=== PATIENT | male | born 1940 | race Caucasian/White ===

== ENCOUNTER 2016-11-20 14:27 | Inpatient (IN) | payer MEDICARE, OTHER ==
[~2016-11-20] VITALS: Ht 180.3 cm; Wt 75.1 kg
[~2016-11-20 14:27] MED LIST: PERC5TAB12 PO
[2016-11-20 14:38] VITALS: BP 175/74; PULSE 105; RESP 16; TEMP 99.1; O2SAT 100
[2016-11-20] MEDS ORDERED: SODIUM CHLOR 0.9% 1000 ML INJ 1,000 ML IV SCH (14:52)
[2016-11-20] MEDS ORDERED: SODIUM CHLORIDE 0.9% FLUSH 5 ML FLUSH IV FLUSH PRN (15:00)
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
--- NOTE | 2016-11-20 15:48 | RADRPT ---
EXAM DATE/TIME: 11/20/2016 15:24 [facility] COMPARISON: No previous studies available for comparison. INDICATIONS : Altered mental status RADIATION DOSE: 49.19 CTDIvol (mGy) MEDICAL HISTORY : Cardiovascular disease. Hypertension. Diabetes mellitus type 2.Skin cancer. SURGICAL HISTORY : None. ENCOUNTER: Initial ACUITY: 1 day PAIN SCALE: 0/10 LOCATION: cranial TECHNIQUE: Multiple contiguous axial images were obtained of the head. Using automated exposure control and adj ustment of the mA and/or kV according to patient size, radiation dose was kept as low as reasonably a chievable to obtain optimal diagnostic quality images. DICOM format image data is available electro nically for review and comparison. FINDINGS: CEREBRUM: Moderate cerebral atrophy with mild periventricular ischemic white matter demyelination. The ventricl es are normal for age. No evidence of midline shift, mass lesion, hemorrhage or acute infarction. N o extra-axial fluid collections are seen. POSTERIOR FOSSA: The cerebellum and brainstem are intact. The 4th ventricle is midline. The cerebellopontine angle i s unremarkable. EXTRACRANIAL: The visualized portion of the orbits is intact. SKULL: The calvaria is intact. No evidence of skull fracture. CONCLUSION: 1. No acute intracranial abnormality. Andrew Holder MD on November 20, 2016 at 15:39 Board Certified Radiologist. This report was verified electronically.
[2016-11-20 15:54] LABS: AUTOMATED NEUTROPHIL # 10.3 TH/MM3 (1.8-7.7); BASOPHIL % 0.1 % (0.0-2.0); HEMATOCRIT 39.5 % (39.0-51.0); HEMO FLAGS DIFF FINAL; LYMPHOCYTE # 0.6 TH/MM3 (1.0-4.8); MEAN CELL VOLUME 90.7 FL (80.0-100.0); MEAN CORPUSCULAR HEMOGLOBIN 30.1 PG (27.0-34.0); MEAN CORPUSCULAR HGB CONC 33.1 % (32.0-36.0); MONO % 11.5 % (0.0-8.0); NEUT % 83.4 % (16.0-70.0); PLATELET COUNT 245 TH/MM3 (150-450); RED BLOOD COUNT 4.35 MIL/MM3 (4.50-5.90); WHITE BLOOD COUNT 12.4 TH/MM3 (4.0-11.0)
--- NOTE | 2016-11-20 16:01 | RADRPT ---
EXAM DATE/TIME: 11/20/2016 15:43 [facility] COMPARISON: CHEST SINGLE AP, February 06, 2016, 0:13. INDICATIONS : Syncope. MEDICAL HISTORY : Cerebrovascular disease. Hypertension Diabetes mellitus type II. SURGICAL HISTORY : None. ENCOUNTER: Initial ACUITY: 1 day PAIN SCORE: 0/10 LOCATION: Bilateral chest FINDINGS: The lungs are clear. The small appearing bone island in the left rib. The heart is minimally large. There is no congestive failure.. CONCLUSION: No acute disease. Rajeev Tavarez MD FACR on November 20, 2016 at 15:58 Board Certified Radiologist. This report was verified electronically.
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
[2016-11-20 16:17] VITALS: BP 160/66; PULSE 99; RESP 18; O2SAT 100
[2016-11-20 16:17] LABS: ALT (GPT) 23 U/L (12-78); ANION GAP 9 MEQ/L (5-15); BICARBONATE 27.7 MEQ/L (21.0-32.0); BLOOD UREA NITROGEN 42 MG/DL (7-18); CHLORIDE 101 MEQ/L (98-107); POTASSIUM 4.4 MEQ/L (3.5-5.1); SODIUM (NA) 138 MEQ/L (136-145)
[2016-11-20 16:23] LABS: BLOOD, URINE TRACE (NEG); GLUCOSE,URINE 1000 mg/dL (NEG); HYALINE CAST, URINE 5 /lpf (RARE); KETONE, URINE 10 mg/dL (NEG); MUCUS URINE FEW /lpf (OCC); NITRITE,URINE NEG (NEG); PH, URINE 5.5 (5.0-8.5); URINE COLOR YELLOW (YELLW/STRAW)
[2016-11-20 16:24] LABS: COMMENT (UR) CATH-CULT NOT IND; CULTURE IF INDICATED CATH CULTURE NOT IND
[2016-11-20 16:25] LABS: ALKALINE PHOSPHATASE 80 U/L (45-117); AST (GOT) 24 U/L (15-37); CREATINE KINASE 215 U/L (39-308); GLOMERULAR FILTRATION RATE 48 ML/MIN (>89); TOTAL BILIRUBIN ADULT 0.5 MG/DL (0.2-1.0)
[2016-11-20] MEDS ORDERED: INSULIN HUMAN REGULAR 1,000 UNITS/10 ML VIAL IV PUSH ONE (17:30)
[2016-11-20] MEDS ORDERED: cefTRIAXone INJ 1,000 MG in SODIUM CHLORIDE 0.9% INJ 100 ML IV ONE (17:30)
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
[2016-11-20] MEDS ORDERED: BISACODYL 10 MG SUPP RECTAL PRN (18:00)
[2016-11-20] MEDS ORDERED: NALOXONE HCL 0.4 MG/ML AMP IV PRN (18:00)
[2016-11-20] MEDS ORDERED: LACTULOSE SYRUP 20 GM/30 ML CUP PO PRN (18:00)
[2016-11-20] MEDS ORDERED: DEXTROSE 50% IN WATER 50 ML VIAL(D50) IV PRN (18:00)
[2016-11-20] MEDS ORDERED: ONDANSETRON HCL 4 MG/2 ML VIAL IVP PRN (18:00)
[2016-11-20] MEDS ORDERED: Vancomycin Consult Pharmacy 1 EA OTHER SCH (18:00)
[2016-11-20] MEDS ORDERED: SODIUM CHLORIDE 0.9% FLUSH 10 ML FLUSH IV FLUSH PRN (18:00)
[2016-11-20] MEDS ORDERED: SENNOSIDES 8.6 MG TAB PO PRN (18:00)
[2016-11-20] MEDS ORDERED: VANCOMYCIN INJ 1,000 MG in SODIUM CHLOR 0.9% 250 ML INJ 250 ML IV SCH (18:00)
[2016-11-20] MEDS ORDERED: MAGNESIUM HYDROXIDE SUSP 30 ML CUP PO PRN (18:00)
[2016-11-20] MEDS ORDERED: GLUCAGON 1 MG/ML VIAL OTHER PRN (18:00)
[2016-11-20 18:04] LABS: AMPHETAMINE, URINE NEG (NEG); BARBITURATES, URINE NEG (NEG); COCAINE, URINE NEG (NEG)
[2016-11-20] MEDS: VANCOMYCIN INJ 1,250 MG in SODIUM CHLOR 0.9% 250 ML INJ 250 ML IV SCH (20:22)
[2016-11-20] MEDS: SODIUM CHLOR 0.9% 1000 ML INJ 1,000 ML IV SCH (20:23)
[2016-11-20 20:24] VITALS: BP 155/69; PULSE 97; RESP 16; TEMP 98.9; O2SAT 100
[2016-11-20] MEDS: DOCUSATE SODIUM 50 MG/SENNA 8.6 MG TAB PO SCH (20:26)
[2016-11-20] MEDS: SODIUM CHLORIDE 0.9% FLUSH 10 ML FLUSH IV FLUSH SCH (20:27)
[2016-11-20] MEDS: HEPARIN SODIUM - SQ 10,000 UNITS/ML VIAL SQ SCH (20:27)
[2016-11-20] MEDS: INSULIN ASPART SUPPLEMENTAL SCALE SQ SCH (20:36)
[2016-11-21] VITALS (9 sets, daily range): BP systolic 125–160; BP diastolic 55–69; PULSE 82–107; RESP 16–20; TEMP 96.7–101.8; O2SAT 91–98
[2016-11-21] MEDS: ACETAMINOPHEN 325 MG TAB PO PRN (00:53)
[2016-11-21] MEDS: SODIUM CHLOR 0.9% 1000 ML INJ 1,000 ML IV SCH ×2 (06:00→17:10)
[2016-11-21] MEDS: INSULIN ASPART SUPPLEMENTAL SCALE SQ SCH ×4 (06:39→21:00)
--- NOTE | 2016-11-21 08:04 | EKG ---
Date Performed: 11/20/2016 Time Performed: 15:00:28 PTAGE: 76 years EKG: SINUS TACHYCARDIA ABNORMAL RHYTHM ECG PREVIOUS TRACING : 02/06/2016 08.17 DOCTOR: Christopher Luz Interpretating Date/Time 11/21/2016 07:58:27
[2016-11-21 08:07] LABS: HEMATOCRIT 36.7 % (39.0-51.0); MEAN CELL VOLUME 90.3 FL (80.0-100.0); MEAN CORPUSCULAR HEMOGLOBIN 29.3 PG (27.0-34.0); MEAN CORPUSCULAR HGB CONC 32.5 % (32.0-36.0); PLATELET COUNT 224 TH/MM3 (150-450); RED BLOOD COUNT 4.06 MIL/MM3 (4.50-5.90); RED CELL DISTRIBUTION WIDTH 13.5 % (11.6-17.2); REVIEW FLAG FINAL; WHITE BLOOD COUNT 11.5 TH/MM3 (4.0-11.0)
[2016-11-21 08:40] LABS: BICARBONATE 26.1 MEQ/L (21.0-32.0); POTASSIUM 3.8 MEQ/L (3.5-5.1)
[2016-11-21] MEDS: DOCUSATE SODIUM 50 MG/SENNA 8.6 MG TAB PO SCH ×2 (09:13→21:03)
[2016-11-21] MEDS: SODIUM CHLORIDE 0.9% FLUSH 10 ML FLUSH IV FLUSH SCH ×2 (09:14→21:00)
[2016-11-21] MEDS: HEPARIN SODIUM - SQ 10,000 UNITS/ML VIAL SQ SCH ×2 (09:14→21:03)
--- NOTE | 2016-11-21 11:16 | PQ ---
Physician Query Response Document PATIENT: AUNDREA VELASQUEZ : 1940 ADMIT DATE: 11/20/2016 5:20 PM DISCH DATE: RESPONDING PROVIDER #: [email or web address] QUERY TEXT: Sepsis Query Based on your medical judgement, can you further clarify the folowiin. Sepsis (SIRS due to an infection) 2. Sepsis with Organ Dysfunction 3. A localized Infection only 4. Another condition - please specify 5. Unable to determine - please explain. Depending on your selection above, please indicate one of the below if applicable: - Sepsis was present on Admission - Sepsis developed after admission The patient's Clinical Indicators include: History and physical 11/20/16 : Cellulitis of left knee : WBC (12.4) is elevated and there are signs o f cellulitis. Lactic acid 1.2, Heart rate 105, Temp 99.1. Query created by: Ivy Ridley on 11/21/2016 9:44 AM RESPONSE TEXT: Provider disagreed with this CDI query. I have never seen this patient. Electronically signed by: Frank Belcher MD 11/21/2016 11:13 AM
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
[2016-11-21] MEDS: VANCOMYCIN INJ 1,250 MG in SODIUM CHLOR 0.9% 250 ML INJ 250 ML IV SCH (21:02)
[2016-11-22] MEDS: SODIUM CHLOR 0.9% 1000 ML INJ 1,000 ML IV SCH ×2 (02:00→11:31)
[2016-11-22 03:58] VITALS: BP 142/65; PULSE 86; RESP 16; TEMP 97.8; O2SAT 98
[2016-11-22] MEDS: INSULIN ASPART SUPPLEMENTAL SCALE SQ SCH ×4 (06:16→21:07)
[2016-11-22 07:00] VITALS: PULSE 97
[2016-11-22 08:32] VITALS: BP 136/58; PULSE 90; RESP 18; TEMP 98.6; O2SAT 96
[2016-11-22] MEDS: DOCUSATE SODIUM 50 MG/SENNA 8.6 MG TAB PO SCH ×2 (08:53→21:06)
[2016-11-22] MEDS: SODIUM CHLORIDE 0.9% FLUSH 10 ML FLUSH IV FLUSH SCH ×2 (08:53→21:06)
[2016-11-22] MEDS: HEPARIN SODIUM - SQ 10,000 UNITS/ML VIAL SQ SCH ×2 (08:53→21:00)
[2016-11-22 09:23] LABS: HEMATOCRIT 37.9 % (39.0-51.0); MEAN CELL VOLUME 91.8 FL (80.0-100.0); MEAN CORPUSCULAR HEMOGLOBIN 29.7 PG (27.0-34.0); MEAN CORPUSCULAR HGB CONC 32.3 % (32.0-36.0); PLATELET COUNT 224 TH/MM3 (150-450); RED BLOOD COUNT 4.13 MIL/MM3 (4.50-5.90); RED CELL DISTRIBUTION WIDTH 13.7 % (11.6-17.2); REVIEW FLAG FINAL; WHITE BLOOD COUNT 9.6 TH/MM3 (4.0-11.0)
[2016-11-22 10:20] LABS: BICARBONATE 26.5 MEQ/L (21.0-32.0); POTASSIUM 3.4 MEQ/L (3.5-5.1)
[2016-11-22 12:41] VITALS: BP 144/59; PULSE 87; RESP 18; TEMP 99.4; O2SAT 97
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
[2016-11-22 16:10] VITALS: BP 106/62; PULSE 86; RESP 18; TEMP 100.1; O2SAT 97
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
[2016-11-22] MEDS: VANCOMYCIN INJ 1,250 MG in SODIUM CHLOR 0.9% 250 ML INJ 250 ML IV SCH (21:00)
[2016-11-23] VITALS (8 sets, daily range): BP systolic 97–171; BP diastolic 51–80; PULSE 77–105; RESP 18–20; TEMP 96.9–101.4; O2SAT 91–99
[2016-11-23] MEDS ORDERED: HALOPERIDOL LACTATE 5 MG/ML AMP IM ONE (01:30)
[2016-11-23] MEDS: INSULIN ASPART SUPPLEMENTAL SCALE SQ SCH ×4 (06:53→20:57)
[2016-11-23 07:40] LABS: HEMATOCRIT 40.3 % (39.0-51.0); MEAN CELL VOLUME 91.4 FL (80.0-100.0); MEAN CORPUSCULAR HEMOGLOBIN 29.4 PG (27.0-34.0); MEAN CORPUSCULAR HGB CONC 32.2 % (32.0-36.0); PLATELET COUNT 233 TH/MM3 (150-450); RED BLOOD COUNT 4.41 MIL/MM3 (4.50-5.90); RED CELL DISTRIBUTION WIDTH 13.5 % (11.6-17.2); REVIEW FLAG FINAL; WHITE BLOOD COUNT 10.5 TH/MM3 (4.0-11.0)
[2016-11-23 07:54] LABS: BICARBONATE 28.3 MEQ/L (21.0-32.0); POTASSIUM 3.9 MEQ/L (3.5-5.1)
[2016-11-23] MEDS: HEPARIN SODIUM - SQ 10,000 UNITS/ML VIAL SQ SCH ×2 (09:40→20:00)
[2016-11-23] MEDS: ACETAMINOPHEN 325 MG TAB PO PRN ×2 (09:40→21:03)
[2016-11-23] MEDS: DOCUSATE SODIUM 50 MG/SENNA 8.6 MG TAB PO SCH ×2 (09:40→20:55)
[2016-11-23] MEDS: SODIUM CHLORIDE 0.9% FLUSH 10 ML FLUSH IV FLUSH SCH ×2 (09:56→20:55)
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
[2016-11-23] MEDS ORDERED: ATOR40TA16 PO (16:46)
[2016-11-23] MEDS ORDERED: GLIP10TA6 PO (16:48)
[2016-11-23] MEDS ORDERED: METF500T PO (16:49)
[2016-11-23] MEDS ORDERED: LISI-515 PO (16:50)
[2016-11-23] MEDS ORDERED: LANTUS2P SQ (16:53)
[2016-11-23] MEDS ORDERED: ASPI81CH CHEW (16:54)
[2016-11-23 17:10] LABS: WBC, SYNOVIAL FLUID 19375 /MM3 (0-200)
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
[2016-11-23] MEDS ORDERED: PHARMACY ORDERED LAB ONE (19:45)
[2016-11-23] MEDS: VANCOMYCIN INJ 1,250 MG in SODIUM CHLOR 0.9% 250 ML INJ 250 ML IV SCH (20:55)
[2016-11-24] VITALS (9 sets, daily range): BP systolic 130–176; BP diastolic 67–94; PULSE 100–108; RESP 16–20; TEMP 97–100.1; O2SAT 95–97
[2016-11-24] MEDS: INSULIN ASPART SUPPLEMENTAL SCALE SQ SCH ×4 (06:24→21:57)
[2016-11-24] MEDS: SODIUM CHLORIDE 0.9% FLUSH 10 ML FLUSH IV FLUSH SCH ×2 (08:30→21:46)
[2016-11-24] MEDS: HEPARIN SODIUM - SQ 10,000 UNITS/ML VIAL SQ SCH ×2 (08:30→21:47)
[2016-11-24] MEDS: DOCUSATE SODIUM 50 MG/SENNA 8.6 MG TAB PO SCH ×2 (08:30→21:00)
--- NOTE | 2016-11-24 09:27 | PD.ORT.PN ---
Subjective Subjective Remarks Patient comfortable. Pain controlled. Able to elevate his leg with minimal pain. Objective Vitals Vital Signs Date Time Temp Pulse Resp B/P Pulse Ox O2 Delivery O2 Flow Rate FiO2 11/24/16 08:09 99.3 102 16 138/69 95 11/24/16 04:00 100.1 107 18 139/67 96 11/24/16 01:38 102 11/24/16 00:00 97.9 100 20 137/88 97 11/23/16 20:00 101.4 105 18 157/70 95 11/23/16 16:24 96.9 99 20 150/63 96 11/23/16 12:50 99.1 95 20 137/57 94 11/23/16 10:54 77 I/O 11/23/16 11/23/16 11/23/16 11/24/16 11/24/16 11/24/16 07:00 15:00 23:00 07:00 15:00 23:00 Intake Total 236 ml Output Total 2300 ml 1750 ml 150 ml 2400 ml 250 ml Balance -2300 ml -1750 ml 86 ml -2400 ml -250 ml Intake Oral 236 ml Output Urine Total 2300 ml 1750 ml 150 ml 2400 ml 250 ml # Bowel Movements 1 1 Result Diagram: 11/23/16 0656 11/23/16 0656 Objective Remarks Left knee 1+ effusion mild global tenderness Mild lateral leg erythema prior incision from suprapatella tibia IM rodding distal neurologic and vascular exam intact Assessment & Plan Problem List: (1) Left leg cellulitis (2) Knee effusion, left Assessment and Plan Left knee aspirated yesterday. Specimen to be sent for cell count, crystal analysis, culture and gram stain Awaiting culture results. He possible will need formal irrigation and debridement if symptoms worsens Continue IV antibiotic Monitor Marco Canela Nov 24, 2016 09:27
[2016-11-24 13:04] LABS: AUTOMATED NEUTROPHIL # 8.1 TH/MM3 (1.8-7.7); BASOPHIL % 0.2 % (0.0-2.0); EOSINOPHIL # 0.1 TH/MM3 (0-0.4); EOSINOPHIL % 0.5 % (0.0-4.0); HEMATOCRIT 40.2 % (39.0-51.0); HEMO FLAGS DIFF FINAL; LYMPH % 7.7 % (9.0-44.0); LYMPHOCYTE # 0.8 TH/MM3 (1.0-4.8); MEAN CELL VOLUME 89.9 FL (80.0-100.0); MEAN CORPUSCULAR HGB CONC 33.3 % (32.0-36.0); MONO % 12.3 % (0.0-8.0); NEUT % 79.3 % (16.0-70.0); PLATELET COUNT 250 TH/MM3 (150-450); RED BLOOD COUNT 4.47 MIL/MM3 (4.50-5.90); RED CELL DISTRIBUTION WIDTH 13.8 % (11.6-17.2); WHITE BLOOD COUNT 10.2 TH/MM3 (4.0-11.0)
[2016-11-24 13:26] LABS: BICARBONATE 27.4 MEQ/L (21.0-32.0); POTASSIUM 3.7 MEQ/L (3.5-5.1)
[2016-11-24] MEDS: VANCOMYCIN INJ 800 MG in SODIUM CHLOR 0.9% 250 ML INJ 250 ML IV SCH (13:47)
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
[2016-11-24 18:46] LABS: CREATINE KINASE 62 U/L (39-308)
[2016-11-24] MEDS: ATORVASTATIN 40 MG TAB PO SCH (21:47)
[2016-11-25 00:20] LABS: CREATINE KINASE 56 U/L (39-308)
[2016-11-25] MEDS ORDERED: PHARMACY ORDERED LAB ONE (01:45)
[2016-11-25] MEDS: VANCOMYCIN INJ 800 MG in SODIUM CHLOR 0.9% 250 ML INJ 250 ML IV SCH ×2 (02:29→18:33)
[2016-11-25 04:00] VITALS: BP 124/76; PULSE 90; RESP 20; TEMP 97.8; O2SAT 96
[2016-11-25] MEDS: INSULIN ASPART SUPPLEMENTAL SCALE SQ SCH ×4 (06:05→20:25)
[2016-11-25 09:15] VITALS: BP 136/72; PULSE 97; RESP 17; TEMP 98.3; O2SAT 95
[2016-11-25] MEDS: LISINOPRIL 20 MG TAB PO SCH (11:10)
[2016-11-25] MEDS: DOCUSATE SODIUM 50 MG/SENNA 8.6 MG TAB PO SCH ×2 (11:13→21:52)
[2016-11-25] MEDS: HEPARIN SODIUM - SQ 10,000 UNITS/ML VIAL SQ SCH ×2 (11:15→20:00)
[2016-11-25] MEDS: SODIUM CHLORIDE 0.9% FLUSH 10 ML FLUSH IV FLUSH SCH ×2 (11:15→21:19)
[2016-11-25] MEDS ORDERED: LACTULOSE SYRUP 20 GM/30 ML CUP PO SCH (11:45)
[2016-11-25] MEDS ORDERED: ONDANSETRON HCL 4 MG/2 ML VIAL IV PUSH ONE (12:00)
[2016-11-25] MEDS ORDERED: PROPOFOL 200 MG/20 ML AMP IV ONE (12:00)
[2016-11-25 12:31] VITALS: BP 142/67; PULSE 103; RESP 17; TEMP 97.9; O2SAT 93
--- NOTE | 2016-11-25 14:53 | EKG ---
Date Performed: 11/24/2016 Time Performed: 14:20:53 PTAGE: 76 years EKG: SINUS TACHYCARDIA WITH OCCASIONAL SUPRAVENTRICULAR PREMATURE COMPLEXES Since previous fabian ng, no significant change noted ABNORMAL RHYTHM ECG PREVIOUS TRACING : 11/20/2016 15.00 DOCTOR: Martin Gray Interpretating Date/Time 11/25/2016 14:52:15
[2016-11-25] MEDS ORDERED: GENTAMICIN SULFATE 80 MG/2 ML VIAL ONE (15:02)
[2016-11-25] MEDS ORDERED: INSULIN HUMAN REGULAR 1,000 UNITS/10 ML VIAL ONE (15:45)
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
[2016-11-25] MEDS ORDERED: Vancomycin Consult Pharmacy 1 EA OTHER SCH (17:15)
[2016-11-25 17:50] VITALS: BP 104/68; PULSE 98; RESP 17; TEMP 99; O2SAT 95
[2016-11-25] MEDS ORDERED: fentaNYL CITRATE 250 MCG/5 ML AMP ONE (19:15)
--- NOTE | 2016-11-25 19:59 | PD.OP ---
cc: Jluis Bird Jr., MD Operative Report Date of Surgery: Nov 25, 2016 Preoperative Diagnosis: Left knee septic arthritis Postoperative Diagnosis: Same Procedure: Left knee open irrigation Anesthesia: Gen. Surgeon: Jluis Bird Inspector [employer](s): Staff Resident Surgeon: None Operation and Findings: Patient was seen and evaluated preoperatively. Patient was found to have infection of the LEFT knee joint. Informed consent was obtained after detailed discussion of risk and benefits of surgery. Operative site was marked. A timeout was performed and agreed upon either the surgical team to identify the patient's name, age, operative site, operating surgeon, medical record number and planned procedure. IV sedation and GETA were administered by anesthesiologist. Operative arm was prepped with alcohol followed by Hibiclens and draped in usual sterile fashion. Procedure began with a midline incision extending from the inferior half of the patella to the level of the tibia tubercle. Dissection was taken down to the level of the patellar tendon and a medial parapatellar arthrotomy was performed with a knife. A small amount of purulent material was found. Specimen was obtained for cultures and sensitivities. A small incision was made for a superior medial portal. A blunt trocar was inserted into the joint from and the knee was washed with 3L NS. At this point the joint was cleaned. The capsule and subcutaneous tissues closed with 3-0 PDS and skin was closed with 3-0 nylon. Sterile dressings were applied. Patient was awakened and transferred to recovery in stable condition. Needle and sponge counts were correct. POSTP-OP PLAN OF ACTIVITY Antibiotics: Ancef, vancomycin Antiocoagulation: Lovenox Weight bearing status: wbat PT/OT: ROM as tolerated to irrigated joints Dressing: daily dressing change by RN starting postop day 2 Future procedure planned: no Dispo: ok to dc when cleared by ID and primary team Jluis Bird Jr., MD Nov 25, 2016 19:59
[2016-11-25] MEDS ORDERED: BISACODYL 10 MG SUPP RECTAL PRN (20:00)
[2016-11-25] MEDS ORDERED: SENNOSIDES 8.6 MG TAB PO PRN (20:00)
[2016-11-25] MEDS ORDERED: VANCOMYCIN INJ 1,000 MG in SODIUM CHLOR 0.9% 250 ML INJ 250 ML IV SCH (20:00)
[2016-11-25] MEDS ORDERED: MORPHINE SULFATE 8 MG/ML INJ IV PUSH PRN (20:00)
[2016-11-25] MEDS ORDERED: LACTULOSE SYRUP 20 GM/30 ML CUP PO PRN (20:00)
[2016-11-25] MEDS ORDERED: Post-op Orders (for Pharmacy) MISC XX ONE (20:00)
[2016-11-25] MEDS ORDERED: ZOLPIDEM TARTRATE 5 MG TAB PO PRN (20:00)
[2016-11-25] MEDS ORDERED: MAGNESIUM HYDROXIDE SUSP 30 ML CUP PO PRN (20:00)
[2016-11-25] MEDS ORDERED: PROMETHAZINE HCL 25 MG TAB PO PRN (20:00)
[2016-11-25] MEDS ORDERED: PERC5TAB12 PO (20:03)
[2016-11-25] MEDS ORDERED: DO NOT ADM ANY ANTICOAGULANT DRUGS PRN (20:09)
[2016-11-25] MEDS: KETOROLAC TROMETHAMINE 30 MG/ML (IVP) VIAL IVP SCH (21:15)
[2016-11-25] MEDS: ATORVASTATIN 40 MG TAB PO SCH (21:51)
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
[2016-11-26] VITALS (10 sets, daily range): BP systolic 98–170; BP diastolic 53–70; PULSE 74–100; RESP 17–20; TEMP 96.6–98.5; O2SAT 92–98
[2016-11-26] MEDS ORDERED: PHARMACY ORDERED LAB ONE (01:45)
[2016-11-26] MEDS: VANCOMYCIN INJ 800 MG in SODIUM CHLOR 0.9% 250 ML INJ 250 ML IV SCH ×2 (02:05→13:47)
[2016-11-26] MEDS: KETOROLAC TROMETHAMINE 30 MG/ML (IVP) VIAL IVP SCH ×4 (02:44→22:05)
[2016-11-26] MEDS: oxyCODONE/ACETAMINOPHEN 5 MG/325 MG TAB PO PRN (02:47)
[2016-11-26] MEDS: INSULIN ASPART SUPPLEMENTAL SCALE SQ SCH ×4 (06:08→21:00)
[2016-11-26] MEDS: SODIUM CHLORIDE 0.9% FLUSH 10 ML FLUSH IV FLUSH SCH ×2 (09:00→21:00)
[2016-11-26] MEDS: DOCUSATE SODIUM 50 MG/SENNA 8.6 MG TAB PO SCH ×2 (09:00→21:00)
[2016-11-26] MEDS: LISINOPRIL 20 MG TAB PO SCH (10:43)
[2016-11-26] MEDS: ENOXAPARIN SODIUM 30 MG/0.3 ML SYRINGE SQ SCH ×2 (10:43→22:05)
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
--- NOTE | 2016-11-26 17:03 | PD.ORT.PN ---
Subjective Subjective Remarks Patient comfortable. Pain controlled. NAD. Objective Vitals Vital Signs Date Time Temp Pulse Resp B/P Pulse Ox O2 Delivery O2 Flow Rate FiO2 11/26/16 16:00 97.9 96 18 110/63 98 11/26/16 12:00 98.5 100 17 152/65 95 11/26/16 07:58 96.9 74 19 135/67 96 11/26/16 07:18 93 21 11/26/16 05:32 96.6 85 20 98/53 95 11/26/16 02:51 92 21 11/26/16 01:27 97.1 92 20 151/70 96 11/25/16 21:51 18 11/25/16 20:45 108 20 105/61 93 Nasal Cannula 2 11/25/16 20:30 106 20 110/56 95 Nasal Cannula 2 11/25/16 20:12 98.1 107 20 109/65 97 Nasal Cannula 2 11/25/16 17:50 99.0 98 17 104/68 95 I/O 11/25/16 11/25/16 11/25/16 11/26/16 11/26/16 11/26/16 07:00 15:00 23:00 07:00 15:00 23:00 Intake Total 1080 ml 450 ml 920 ml Output Total 250 ml 10 ml 500 ml Balance -250 ml 1070 ml 450 ml 420 ml Intake Oral 920 ml IV Total 280 ml 450 ml Other 800 ml Output Urine Total 250 ml 500 ml Estimated Blood Loss 10 ml # Voids 8 1 # Bowel Movements 0 Result Diagram: 11/24/16 1240 11/24/16 1240 Objective Remarks Left knee dressing and talha wrap C/D/I calves soft negative Ulisses's able to left leg without pain distally motor, neuro, and sensory intact Assessment & Plan Problem List: (1) Left leg cellulitis (2) Knee effusion, left Assessment and Plan POD #1 Left Knee Open Irrigation POST-OP PLAN OF ACTIVITY Antibiotics: Ancef, vancomycin Antiocoagulation: Lovenox Weight bearing status: WBAT PT/OT: ROM as tolerated to irrigated joints Dressing: daily dressing change by RN starting postop day 2 Future procedure planned: no Dispo: ok to dc when cleared by ID and primary team Marco Canela Nov 26, 2016 17:03
[2016-11-26] MEDS: ATORVASTATIN 40 MG TAB PO SCH (22:05)
[2016-11-27] VITALS (7 sets, daily range): BP systolic 160–178; BP diastolic 68–77; PULSE 87–116; RESP 18–20; TEMP 97.1–99.2; O2SAT 95–98
[2016-11-27] MEDS: VANCOMYCIN INJ 800 MG in SODIUM CHLOR 0.9% 250 ML INJ 250 ML IV SCH ×2 (01:22→16:04)
[2016-11-27] MEDS: KETOROLAC TROMETHAMINE 30 MG/ML (IVP) VIAL IVP SCH ×3 (04:15→16:16)
[2016-11-27] MEDS: INSULIN ASPART SUPPLEMENTAL SCALE SQ SCH ×4 (06:38→21:36)
[2016-11-27] MEDS: SODIUM CHLORIDE 0.9% FLUSH 10 ML FLUSH IV FLUSH SCH ×2 (09:00→21:40)
[2016-11-27] MEDS: DOCUSATE SODIUM 50 MG/SENNA 8.6 MG TAB PO SCH ×2 (09:00→21:39)
[2016-11-27] MEDS: ENOXAPARIN SODIUM 30 MG/0.3 ML SYRINGE SQ SCH ×2 (09:54→21:39)
[2016-11-27] MEDS: LISINOPRIL 20 MG TAB PO SCH (09:55)
[2016-11-27 11:16] LABS: BASOPHIL % 0.1 % (0.0-2.0); EOSINOPHIL # 0.1 TH/MM3 (0-0.4); EOSINOPHIL % 1.2 % (0.0-4.0); HEMATOCRIT 39.7 % (39.0-51.0); HEMO FLAGS DIFF FINAL; LYMPH % 9.8 % (9.0-44.0); LYMPHOCYTE # 0.9 TH/MM3 (1.0-4.8); MEAN CELL VOLUME 90.9 FL (80.0-100.0); MEAN CORPUSCULAR HEMOGLOBIN 29.6 PG (27.0-34.0); MEAN CORPUSCULAR HGB CONC 32.6 % (32.0-36.0); MONO % 10.6 % (0.0-8.0); NEUT % 78.3 % (16.0-70.0); PLATELET COUNT 301 TH/MM3 (150-450); RED BLOOD COUNT 4.37 MIL/MM3 (4.50-5.90); RED CELL DISTRIBUTION WIDTH 13.8 % (11.6-17.2); WHITE BLOOD COUNT 8.9 TH/MM3 (4.0-11.0)
[2016-11-27 11:44] LABS: BICARBONATE 29.1 MEQ/L (21.0-32.0); POTASSIUM 3.5 MEQ/L (3.5-5.1)
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
[2016-11-27] MEDS: INSULIN DETEMIR 100 UNITS/ML VIAL SQ SCH (21:37)
[2016-11-27] MEDS: ATORVASTATIN 40 MG TAB PO SCH (21:39)
[2016-11-28] VITALS (7 sets, daily range): BP systolic 107–187; BP diastolic 60–85; PULSE 78–104; RESP 17–20; TEMP 98–99.9; O2SAT 95–98
[2016-11-28] MEDS: oxyCODONE/ACETAMINOPHEN 5 MG/325 MG TAB PO PRN (01:17)
[2016-11-28] MEDS: SODIUM CHLORIDE 0.9% FLUSH 10 ML FLUSH IV FLUSH PRN (01:28)
[2016-11-28] MEDS: VANCOMYCIN INJ 800 MG in SODIUM CHLOR 0.9% 250 ML INJ 250 ML IV SCH ×2 (01:28→14:28)
[2016-11-28] MEDS ORDERED: PHARMACY ORDERED LAB ONE (01:45)
--- NOTE | 2016-11-28 06:01 | PD.ORT.PN ---
Subjective Subjective Remarks significantly improved knee pain. no cp/sob Objective Vitals Vital Signs Date Time Temp Pulse Resp B/P Pulse Ox O2 Delivery O2 Flow Rate FiO2 11/28/16 04:00 98.0 83 18 154/68 97 11/27/16 19:44 99.2 104 20 169/71 98 11/27/16 16:00 97.1 98 19 167/72 96 11/27/16 12:00 97.8 87 18 178/77 98 11/27/16 10:27 95 21 11/27/16 08:00 98.2 95 19 160/70 96 I/O 11/27/16 11/27/16 11/27/16 11/28/16 11/28/16 11/28/16 07:00 15:00 23:00 07:00 15:00 23:00 Intake Total 500 ml 480 ml 240 ml Output Total 750 ml 700 ml 350 ml Balance -250 ml -220 ml -110 ml Intake Oral 500 ml 480 ml 240 ml Output Urine Total 750 ml 700 ml 350 ml # Bowel Movements 0 2 Result Diagram: 11/27/16 1009 11/27/16 1009 Objective Remarks Left knee dressing and talha wrap C/D/I calves soft negative Ulisses's able to left leg without pain distally motor, neuro, and sensory intact Assessment & Plan Problem List: (1) Left leg cellulitis (2) Knee effusion, left Assessment and Plan POD #3 Left Knee Open Irrigation POST-OP PLAN OF ACTIVITY Antibiotics: per ID Antiocoagulation: Lovenox Weight bearing status: WBAT PT/OT: ROM as tolerated Dressing: daily dressing change by RN Dispo: Clear to dc per orthopedics SIGN OFF Jluis Bird Jr., MD Nov 28, 2016 06:00
[2016-11-28] MEDS: INSULIN ASPART SUPPLEMENTAL SCALE SQ SCH ×4 (07:15→21:13)
[2016-11-28] MEDS: DOCUSATE SODIUM 50 MG/SENNA 8.6 MG TAB PO SCH ×2 (08:13→21:00)
[2016-11-28] MEDS: ENOXAPARIN SODIUM 30 MG/0.3 ML SYRINGE SQ SCH ×2 (08:14→21:01)
[2016-11-28] MEDS: LISINOPRIL 20 MG TAB PO SCH (08:14)
[2016-11-28] MEDS: SODIUM CHLORIDE 0.9% FLUSH 10 ML FLUSH IV FLUSH SCH ×2 (08:20→21:02)
[2016-11-28 09:03] LABS: BLOOD GAS BASE EXCESS 4.8 mmol/L (-2-2); BLOOD GAS CARBOXYHEMOGLOBIN 1.2 % (0-4); BLOOD GAS HCO3 28 mmol/L (22-26); BLOOD GAS METHEMOGLOBIN 0.8 % (0-2); BLOOD GAS O2 HGB SATURATION 92 % (90-100); BLOOD GAS PCO2 38 mmHg (38-42); BLOOD GAS PO2 65 mmHg (61-120); BLOOD GAS TOTAL HGB 12.4 G/DL (12.0-16.0); CRITICAL VALUE NO; DRAW SITE RT RADIAL; FIO2 21 %; NUMBER OF ARTERIAL PUNCTURES 1; STAT YES; TEMP CORR TO 98.6; ULNAR PULSE PRESENT
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
--- NOTE | 2016-11-28 12:00 | HHI.FF ---
Infusion Therapy Patient Information Patient Weight 72.7 kg Diagnosis: Diagnosis MRSA Septic arthritis l. knee Coded Allergies: *MDRO Multi-Drug Resistant Organism (Verified Adverse Reaction, Unknown, ) MRSA (Synovial Fluid)- 11/23/16, (knee) 11/25/16 Administer Medication Vancomycin 1.5 grams IV q 24 hours Stop Treatment: Dec 23, 2016 Additional Information Venous access: PICC Line Additional Instructions [x] Peripheral flush and dressing changes per protocol [x] Implanted port and central personal lines advisor: * Implanted port: 10 ml Normal Saline followed by 5 ml Heparin 100 units/ml Heparin flush after each use and monthly to maintain. [] May leave port accessed during therapy. [] May leave peripheral site accessed for duration of therapy. [x] If patient has SOB or respiratory distress, check oxygen saturation. If less than 90% or clinical signs of respiratory distress, administer oxygen at 2 L/min. via nasal cannula and notify physician. [x] Anaphylaxis/Reaction orders: * Stop infusion. * Keep IV line open with saline flush. * Notify physician. * Monitor vital signs every 15 minutes until symptoms resolve. * Check Oxygen saturation; Oxygen at 2 L/min. via nasal cannula if less than 90% or clinical signs of respiratory distress. * Administer diphenhydramine (Benadryl) 25 mg IV STAT, (unless patient has received as pre-med). May repeat once, if necessary. * Solu-Cortef 250 mg IVP over 30-60 seconds, use 100 mg vials for each dissolution. * Epinephrine (1mg/1 ml) 0.3 mg subcutaneously or IVP now with any signs of respiratory distress. * Check with physician for new additional pre-med orders if patient is re- challenged or re-treated. [x] May remove PICC line when treatment complete, after confirming with Physician. [x] If the patient is admitted to the hospital, the ED, or transferred via [facility] , complete transfer form including medication reconciliation order sheet. Laboratory Tests Weekly Labs: BMP, CBC w/diff, Vancomycin Trough Salvador Morelos MD Nov 28, 2016 12:00
[2016-11-28 13:50] LABS: VITAMIN B6 LESS THAN 2.0 ng/mL (2.1-21.7)
[2016-11-28 14:39] LABS: ALBUMIN SPE 2.43 GM/DL (3.50-5.00); ALPHA 1 GLOBULIN 0.44 GM/DL (0.11-0.29); ALPHA 2 GLOBULIN 1.39 GM/DL (0.22-1.00); BETA GLOBULINS (SPE) 0.9 GM/DL (0.53-1.03)
[2016-11-28 16:08] LABS: APTT (PATIENT) 31.5 SEC (24.3-30.1); INTERNATIONAL NORMALIZED RATIO 1.1 RATIO; PROTHROMBIN TIME - PATIENT 12.2 SEC (9.8-11.6)
--- NOTE | 2016-11-28 16:29 | MG ---
cc: AVIS PALOMARES M.D. Lab No: [id number] Date: 11/28/2016 Age: 76 Sex: M Race: DATE OF : [address] Kennedy In room 1515 with photic stimulation, awake, drowsy, asleep study. CT reported to be normal. Admitted for confusion status post fall, history of heart disease, diabetes, hypertension. MEDICATION Medicines are lisinopril, insulin, Lovenox, Toradol, Lipitor, Percocet. DESCRIPTION OF RECORD There is overall moderate slowing seen about 4 Hz, a lot of muscle artifact throughout, head movement. Hyperventilation was not done. Noted that the patient is talking to the commercial tire service technician. Photic stimulation minimal driving response, more artifact. IMPRESSION Abnormal EEG due to moderate slowing consistent with likely encephalopathic process. No evidence of epileptic activity. Clinical correlation. Avis Palomares MD DF/TLL /2:59 PM /4:25 PM
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
--- NOTE | 2016-11-28 17:20 | RADRPT ---
EXAM DATE/TIME: 11/28/2016 16:56 [facility] COMPARISON: CHEST SINGLE AP, November 20, 2016, 15:43. INDICATIONS : PICC line placement. MEDICAL HISTORY : None. SURGICAL HISTORY : None. ENCOUNTER: Initial ACUITY: 1 day PAIN SCORE: 0/10 LOCATION: Bilateral chest FINDINGS: A single view of the chest demonstrates the lungs to be symmetrically aerated without evidence of mas s, infiltrate or effusion. Mild stable elevation right hemidiaphragm. There is a right Picc line in p lace which appears to be in good position. No evidence of pneumothorax. The cardiomediastinal contour s are unremarkable. Osseous structures are intact. CONCLUSION: 1. Good position of the right PICC line. 2. No acute intrathoracic disease. Bob Magallanes MD on November 28, 2016 at 17:17 Board Certified Radiologist. This report was verified electronically.
[2016-11-28] MEDS ORDERED: SODIUM CHLORIDE 0.9% FLUSH 10 ML FLUSH IV FLUSH PRN (17:30)
[2016-11-28] MEDS ORDERED: GADODIAMIDE PF 287 MG/ML 5 ML VIAL (for RAD MRI) IV ONE (18:29)
[2016-11-28] MEDS: ATORVASTATIN 40 MG TAB PO SCH (21:01)
[2016-11-28] MEDS: INSULIN DETEMIR 100 UNITS/ML VIAL SQ SCH (21:12)
--- NOTE | 2016-11-28 22:01 | RADRPT ---
EXAM DATE/TIME: 11/28/2016 18:17 [facility] COMPARISON: CT BRAIN W/O CONTRAST, November 20, 2016, 15:24. INDICATIONS : Confusion. CONTRAST: 14 cc Omniscan (gadodiamide) IV MEDICAL HISTORY : Diabetes mellitus type 2. Hypertension. Skin cancer and coronary artery disease. SURGICAL HISTORY : Coronary artery stent. Intramedullary aureliano. ENCOUNTER: Initial ACUITY: 1 day PAIN SCORE: 0/10 LOCATION: Head. TECHNIQUE: Multiplanar, multisequence MRI of the brain was performed both prior to and following the administrat ion of paramagnetic contrast. FINDINGS: CEREBRUM: The ventricles, sulci, and basal cisterns are prominent characteristic of moderately severe central a nd cortical atrophy. No evidence of midline shift, mass lesion, hemorrhage or acute infarction. No extraaxial fluid collections are seen. The pituitary gland and suprasellar cistern are normal in con figuration. WHITE MATTER: No significant signal abnormalities are seen in the white matter. POSTERIOR FOSSA: There is thickening of the soft tissues behind the dens which causes a narrowing of the foramen magnu m. This does cause loss of CSF ventral to the cervical medullary junction and possible flattening of the ventral margin. The cerebellum and brainstem are intact. The 4th ventricle is midline. The cer ebellopontine angle is unremarkable. The cerebellar tonsils are normal in position. DIFFUSION IMAGING: No focal areas of restricted diffusion are seen. No evidence of acute infarction. EXTRACRANIAL: The visualized portions of the orbits and paranasal sinuses are unremarkable. POST-CONTRAST: No abnormal areas of parenchymal or dural enhancement. No evidence of blood-brain barrier breakdown. CONCLUSION: 1. Moderately severe central and cortical atrophy. No evidence of acute stroke. 2. Thickening of the soft tissues posterior to the dens causing narrowing of the spinal canal at the cervical cranial junction; probable impression on the ventral margin of the upper cervical cord. Codey Stanton MD on November 28, 2016 at 21:52 Board Certified Radiologist. This report was verified electronically.
[2016-11-29] MEDS: VANCOMYCIN INJ 800 MG in SODIUM CHLOR 0.9% 250 ML INJ 250 ML IV SCH ×2 (02:38→14:07)
[2016-11-29] MEDS: SODIUM CHLORIDE 0.9% FLUSH 10 ML FLUSH IV FLUSH PRN (02:39)
[2016-11-29] MEDS: INSULIN ASPART SUPPLEMENTAL SCALE SQ SCH ×4 (06:34→20:52)
--- NOTE | 2016-11-29 07:50 | HHI.PR ---
Subjective Remarks slept most of noc acc to nurse Objective Vital Signs Date Time Temp Pulse Resp B/P Pulse Ox O2 Delivery O2 Flow Rate FiO2 11/28/16 20:00 99.9 104 20 107/76 95 11/28/16 17:59 78 11/28/16 16:04 99.0 90 18 187/85 98 11/28/16 12:36 98.7 99 17 146/66 97 11/28/16 08:00 99.8 78 19 151/73 96 I/O 11/28/16 11/28/16 11/28/16 11/29/16 11/29/16 11/29/16 07:00 15:00 23:00 07:00 15:00 23:00 Intake Total 370 ml 960 ml Output Total 300 ml 575 ml 800 ml 450 ml Balance 70 ml 385 ml -800 ml -450 ml Intake Oral 120 ml 960 ml IV Total 250 ml Output Urine Total 300 ml 575 ml 800 ml 450 ml # Bowel Movements 1 Result Diagram: 11/27/16 1009 11/27/16 1009 Objective Remarks confused as to place pleasant moves all speech fluent Assessment and Plan Assessment and Plan imp mri brain ok x c1 abn nusu on case and mri c spine ordered labs ok spep? mgus await interpretation abg ok eeg neg sz he may have dementia will call me today ow neurowise could dc if nusu clears c1 and fu office Champ Kennedy MD Nov 29, 2016 07:50
[2016-11-29 08:00] VITALS: BP 114/75; PULSE 102; RESP 16; TEMP 98.6; O2SAT 95
[2016-11-29] MEDS: DOCUSATE SODIUM 50 MG/SENNA 8.6 MG TAB PO SCH ×2 (08:27→20:48)
[2016-11-29] MEDS: LISINOPRIL 20 MG TAB PO SCH (08:27)
[2016-11-29] MEDS: ENOXAPARIN SODIUM 30 MG/0.3 ML SYRINGE SQ SCH ×2 (08:27→20:48)
[2016-11-29] MEDS: SODIUM CHLORIDE 0.9% FLUSH 10 ML FLUSH IV FLUSH SCH ×3 (08:30→20:48)
[2016-11-29 10:23] LABS: RAPID PLASMA REAGIN SCREEN NON-REACTIVE (NON-REACTVE)
[2016-11-29] MEDS ORDERED: GADODIAMIDE PF 287 MG/ML 5 ML VIAL (for RAD MRI) IV ONE (10:38)
--- NOTE | 2016-11-29 10:56 | RADRPT ---
EXAM DATE/TIME: 11/29/2016 09:35 [facility] COMPARISON: No previous studies available for comparison. INDICATIONS : Bilateral leg weakness. CONTRAST: 14 cc Omniscan (gadodiamide) IV MEDICAL HISTORY : Hypertension. Diabetes mellitus type 2. CAD SURGICAL HISTORY : left knee drainage, CAD stent ENCOUNTER: Subsequent ACUITY: 1 week PAIN SCORE: 2/10 LOCATION: neck TECHNIQUE: Multiplanar, multisequence MRI examination of the cervical spine was performed. FINDINGS: VERTEBRAE: There is moderate diffuse primary degenerative changes throughout the entire cervical spine. There is mild anterior subluxation of C4 over C5. No abnormal bone marrow edema is seen in the vertebral bodi es. No compression fractures are demonstrated. There is disc degeneration with a disc space narrowing at C4-5, C5-6 and C6-7. There is chronic soft tissue changes behind the dens most likely related to chronic degenerative type changes. This appears to be causing some narrowing at the foramen magnum. CORD: There is questionable increased signal at the level of the foramen magnum/C1 and C3-4 suggestive of s ome myelopathy. POST FOSSA: The cerebellar tonsils are normal in position. POST-CONTRAST: No abnormal areas of enhancement are seen. C2-C3: Mild right paracentral bulging. The neural foramina are patent bilaterally. C3-C4: There is central and right paracentral bulging/protrusion with a disc osteophyte complex. There is na rrowing of the right neural foramina. The left neural foramina is patent. Moderate spinal canal steno sis. C4-C5: The thecal sac has a normal configuration. There is no evidence of disc herniation or spinal canal s tenosis. There is mild narrowing of the right neural foramina. The left neural foramina appears paten t.. Prominent facet arthritis on the right side. C5-C6: The thecal sac has a normal configuration. There is no evidence of disc herniation or spinal canal s tenosis. The neural foramina are patent bilaterally. C6-C7: Broad-based and left lateral bulging with narrowing of the left neural foramina. The right neural for will appears patent. C7-T1: Broad-based and right lateral bulging with narrowing of the right neural foramina. The left neural fo ramina appears patent. CONCLUSION: 1. There is at least focal moderate spinal canal stenosis at C3-4. There appears to be some mild incr eased signal within the spinal cord at this level suggestive of some focal myelopathy. 2. Diffuse primary bony degenerative changes, disc degeneration disc space narrowing throughout the c ervical spine as noted above. 3. Chronic degenerative soft tissue changes posterior to the dens causing some narrowing of the destiny en magnum/C1 spinal canal location with some questionable myelopathy and spinal cord at this level. 4. Mild anterior subluxation of C4 over C5. Bob Magallanes MD on November 29, 2016 at 10:44 Board Certified Radiologist. This report was verified electronically.
--- NOTE | 2016-11-29 11:40 | RADRPT ---
EXAM DATE/TIME: 11/29/2016 09:05 [facility] COMPARISON: No previous studies available for comparison. INDICATIONS : Neck pain. Possible cord compression. RADIATION DOSE: 23.62 CTDIvol (mGy) MEDICAL HISTORY : Hypertension. Diabetes mellitus type 2. SURGICAL HISTORY : None. ENCOUNTER: Initial ACUITY: 1 day PAIN SCALE: 4/10 LOCATION: neck TECHNIQUE: Volumetric scanning of the cervical spine was performed. Multiplanar reconstructions in the sagittal, coronal and oblique axial planes were performed. Using automated exposure control and adjustment o f the mA and/or kV according to patient size, radiation dose was kept as low as reasonably achievable to obtain optimal diagnostic quality images. DICOM format image data is available electronically f or review and comparison. FINDINGS: There are extensive degenerative changes in the cervical spine congenital fusion at C5-C6 and partial fusion of C7. There are extensive degenerative changes at C1-C2 articulation. C2-C3: There is mild uncinate ridging with moderate left-sided neural foraminal encroachment without signifi cant cord compression. C3-C4: Moderate uncinate ridging is present with significant bilateral neural foraminal encroachment much wo rse on the right than the left with mild to moderate spinal stenosis. There is a central disc presen t as well. Stenosis is moderate. C4-C5: Significant facet disease is seen on the right with near complete obliteration of the neural foramen. Moderate neural foraminal encroachment is seen on the left. There is mild spinal stenosis. C5-C6: C5-C6 is fused. Neural foramina are adequate. C6-C7: Extensive uncinate ridging is present with bilateral neural foraminal encroachment worse on the left than the right with mild spinal stenosis. C7-T1: Moderate uncinate ridging is present with moderate bilateral neural foraminal encroachment. CONCLUSION: Radiographically significant cervical spinal stenosis at the C3- C4 level. There is mild to moderate stenosis at the C5-C6 level. Rajeev Tavarez MD FACR on November 29, 2016 at 10:21 Board Certified Radiologist. This report was verified electronically.
[2016-11-29 12:00] VITALS: BP 125/71; PULSE 90; RESP 17; TEMP 98.3; O2SAT 97
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
--- NOTE | 2016-11-29 12:46 | PD.WCN.NOT ---
Wound Consult Description: Patient seen on [address] [facility] for wound evaluation of right buttock per nursing. Communicated with: AUDREY Cassidy Recommendation: Calazime skin protectant BID and PRN to right buttock wound Continue to encourage repositioning Q2H to relieve pressure Additional Information: Patient seen on [address] [facility] for wound evaluation of right buttock per nursing documentation. Patient positioned to his left side for assessment with minimal assistance. A resolving wound was visualized on the right buttock measuring 0.8cm x 0.9cm x <0.1cm of 100% pink tissue and no drainage or odor noted with periwound of thickened, blanching, pink discolored scarring, peeling, and denuded skin indicating a moisture and possible friction etiology. Calazime skin protectant was applied to partial thickness skinloss on right buttock and patient was positioned to his left side after assessment by placing a pillow underneath his right back and buttock to relieve pressure Q2h per protocol. Flores Stevenson [facility] Nov 29, 2016 12:46
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
[2016-11-29] MEDS: oxyCODONE/ACETAMINOPHEN 5 MG/325 MG TAB PO PRN ×2 (14:50→20:48)
[2016-11-29 15:51] LABS: ANA SCREEN POS (NEG)
[2016-11-29 16:00] VITALS: BP 90/61; PULSE 100; RESP 16; TEMP 97.5; O2SAT 95
[2016-11-29 17:35] VITALS: PULSE 92
[2016-11-29 20:13] VITALS: BP 153/74; PULSE 110; RESP 17; TEMP 97.2; O2SAT 96
[2016-11-29] MEDS: ATORVASTATIN 40 MG TAB PO SCH (20:48)
[2016-11-29] MEDS: INSULIN DETEMIR 100 UNITS/ML VIAL SQ SCH (20:51)
[2016-11-29 22:00] VITALS: PULSE 79; PULSE 92
[2016-11-30] MEDS: VANCOMYCIN INJ 800 MG in SODIUM CHLOR 0.9% 250 ML INJ 250 ML IV SCH ×2 (01:33→13:20)
[2016-11-30] MEDS: INSULIN ASPART SUPPLEMENTAL SCALE SQ SCH ×4 (06:21→21:13)
[2016-11-30 07:40] VITALS: BP 117/70; PULSE 88; RESP 17; TEMP 99.1; O2SAT 96
[2016-11-30] MEDS: ENOXAPARIN SODIUM 30 MG/0.3 ML SYRINGE SQ SCH ×2 (08:50→21:10)
[2016-11-30] MEDS: LISINOPRIL 20 MG TAB PO SCH (08:51)
[2016-11-30] MEDS: DOCUSATE SODIUM 50 MG/SENNA 8.6 MG TAB PO SCH ×2 (08:51→21:10)
[2016-11-30] MEDS: SODIUM CHLORIDE 0.9% FLUSH 10 ML FLUSH IV FLUSH SCH ×3 (09:00→21:10)
[2016-11-30 11:33] VITALS: BP 112/79; PULSE 98; RESP 16; TEMP 99.2; O2SAT 95
[2016-11-30] MEDS: INSULIN DETEMIR 100 UNITS/ML VIAL SQ SCH ×2 (13:22→21:12)
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
[2016-11-30 15:48] VITALS: BP 107/71; PULSE 99; RESP 17; TEMP 99.1; O2SAT 97
[2016-11-30 16:32] VITALS: PULSE 108
--- NOTE | 2016-11-30 17:37 | RADRPT ---
EXAM DATE/TIME: 11/30/2016 17:25 [facility] COMPARISON: CHEST SINGLE AP, November 28, 2016, 16:56. INDICATIONS : Post PICC line insertion. MEDICAL HISTORY : None. SURGICAL HISTORY : None. ENCOUNTER: Initial ACUITY: 1 day PAIN SCORE: 0/10 LOCATION: Bilateral chest FINDINGS: A single view of the chest demonstrates the lungs to be symmetrically aerated without evidence of mas s, infiltrate or effusion. Right-sided PICC line with tip in the SVC. The cardiomediastinal contours are unremarkable. Osseous structures are intact. CONCLUSION: No acute disease. Joni Gonzalez MD on November 30, 2016 at 17:35 Board Certified Radiologist. This report was verified electronically.
[2016-11-30] MEDS ORDERED: SODIUM CHLORIDE 0.9% FLUSH 10 ML FLUSH IV FLUSH PRN (18:30)
[2016-11-30 20:28] VITALS: BP 103/55; PULSE 108; RESP 18; TEMP 98.8; O2SAT 96
[2016-11-30] MEDS: ATORVASTATIN 40 MG TAB PO SCH (21:10)
[2016-12-01] VITALS (7 sets, daily range): BP systolic 106–120; BP diastolic 61–74; PULSE 80–107; RESP 16–20; TEMP 98.7–100.9; O2SAT 94–100
[2016-12-01] MEDS ORDERED: PHARMACY ORDERED LAB ONE (01:45)
[2016-12-01] MEDS: VANCOMYCIN INJ 800 MG in SODIUM CHLOR 0.9% 250 ML INJ 250 ML IV SCH ×2 (02:00→14:58)
[2016-12-01] MEDS: INSULIN ASPART SUPPLEMENTAL SCALE SQ SCH ×4 (06:14→20:15)
[2016-12-01] MEDS: INSULIN DETEMIR 100 UNITS/ML VIAL SQ SCH ×2 (08:24→20:14)
[2016-12-01] MEDS: LISINOPRIL 20 MG TAB PO SCH (08:25)
[2016-12-01] MEDS: DOCUSATE SODIUM 50 MG/SENNA 8.6 MG TAB PO SCH ×2 (08:25→20:13)
[2016-12-01] MEDS: ENOXAPARIN SODIUM 30 MG/0.3 ML SYRINGE SQ SCH ×2 (08:28→20:13)
[2016-12-01] MEDS: SODIUM CHLORIDE 0.9% FLUSH 10 ML FLUSH IV FLUSH SCH ×4 (08:46→20:15)
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
[2016-12-01 12:24] LABS: BASOPHIL % 0.2 % (0.0-2.0); EOSINOPHIL # 0.1 TH/MM3 (0-0.4); EOSINOPHIL % 0.5 % (0.0-4.0); HEMO FLAGS DIFF FINAL; LYMPH % 11.9 % (9.0-44.0); LYMPHOCYTE # 1.2 TH/MM3 (1.0-4.8); MEAN CELL VOLUME 89.9 FL (80.0-100.0); MEAN CORPUSCULAR HEMOGLOBIN 28.9 PG (27.0-34.0); MEAN CORPUSCULAR HGB CONC 32.1 % (32.0-36.0); NEUT % 79.4 % (16.0-70.0); PLATELET COUNT 346 TH/MM3 (150-450); RED BLOOD COUNT 4.45 MIL/MM3 (4.50-5.90); RED CELL DISTRIBUTION WIDTH 14.2 % (11.6-17.2); WHITE BLOOD COUNT 10.1 TH/MM3 (4.0-11.0)
[2016-12-01 20:13] LABS: BLOOD, URINE TRACE (NEG); COMMENT (UR) CULT NOT INDICATED; CULTURE IF INDICATED CULT NOT INDICATED; GLUCOSE,URINE 1000 mg/dL (NEG); KETONE, URINE NEG (NEG); NITRITE,URINE NEG (NEG); PH, URINE 5.5 (5.0-8.5); URINE COLOR YELLOW (YELLW/STRAW)
[2016-12-01] MEDS: ATORVASTATIN 40 MG TAB PO SCH (20:13)
[2016-12-02] MEDS: VANCOMYCIN INJ 800 MG in SODIUM CHLOR 0.9% 250 ML INJ 250 ML IV SCH ×2 (01:29→13:01)
[2016-12-02 04:51] LABS: AUTOMATED NEUTROPHIL # 7.6 TH/MM3 (1.8-7.7); BASOPHIL # 0.1 TH/MM3 (0-0.2); BASOPHIL % 0.7 % (0.0-2.0); EOSINOPHIL # 0.1 TH/MM3 (0-0.4); EOSINOPHIL % 0.6 % (0.0-4.0); HEMATOCRIT 36.4 % (39.0-51.0); HEMO FLAGS DIFF FINAL; LYMPH % 14.3 % (9.0-44.0); LYMPHOCYTE # 1.4 TH/MM3 (1.0-4.8); MEAN CELL VOLUME 87.7 FL (80.0-100.0); MEAN CORPUSCULAR HEMOGLOBIN 29.8 PG (27.0-34.0); MONO % 8.6 % (0.0-8.0); NEUT % 75.8 % (16.0-70.0); PLATELET COUNT 334 TH/MM3 (150-450); RED BLOOD COUNT 4.15 MIL/MM3 (4.50-5.90); RED CELL DISTRIBUTION WIDTH 14.1 % (11.6-17.2)
[2016-12-02] MEDS: INSULIN ASPART SUPPLEMENTAL SCALE SQ SCH ×4 (06:03→21:37)
[2016-12-02 06:04] VITALS: PULSE 64
[2016-12-02] MEDS: DOCUSATE SODIUM 50 MG/SENNA 8.6 MG TAB PO SCH ×2 (07:56→21:31)
[2016-12-02] MEDS: ENOXAPARIN SODIUM 30 MG/0.3 ML SYRINGE SQ SCH (07:57)
[2016-12-02] MEDS: SODIUM CHLORIDE 0.9% FLUSH 10 ML FLUSH IV FLUSH SCH ×4 (07:57→21:31)
[2016-12-02] MEDS: LISINOPRIL 20 MG TAB PO SCH (07:58)
[2016-12-02 08:00] VITALS: BP 120/83; PULSE 99; RESP 17; TEMP 96.9; O2SAT 94
--- NOTE | 2016-12-02 08:11 | HHI.PR ---
Subjective Remarks slept most of noc acc to nurse Objective Vital Signs Date Time Temp Pulse Resp B/P Pulse Ox O2 Delivery O2 Flow Rate FiO2 12/01/16 22:38 107 12/01/16 20:00 99.5 94 20 106/61 100 12/01/16 13:49 80 12/01/16 11:50 98.7 93 16 106/63 96 I/O 12/01/16 12/01/16 12/01/16 12/02/16 12/02/16 12/02/16 07:00 15:00 23:00 07:00 15:00 23:00 Intake Total 240 ml 730 ml Output Total 400 ml 200 ml 300 ml Balance -400 ml -200 ml 240 ml 730 ml -300 ml Intake Oral 240 ml 480 ml IV Total 250 ml Output Urine Total 400 ml 200 ml 300 ml # Voids 2 3 # Bowel Movements 0 1 Result Diagram: 12/02/16 0440 12/01/16 0145 Objective Remarks not yr knows [facility] moves all toes down no clonus dtr tr speech fluent Assessment and Plan Assessment and Plan imp mri brain ok x c1 abn nusu on case and mri c spineshows sign mod est r spinal stenosis c3-4 labs ok spepneg abg ok eeg neg sz he has dementia never called me neurosurgery needs to weigh in on spinal stenosis ow can fu office dementia no myelopathy on exam Champ Kennedy MD Dec 02, 2016 08:10
[2016-12-02] MEDS: INSULIN DETEMIR 100 UNITS/ML VIAL SQ SCH ×2 (08:44→21:36)
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
[2016-12-02 11:45] LABS: ANA TITER QUANT 1:40 (NEG)
[2016-12-02 12:20] VITALS: BP 143/67; PULSE 92; RESP 24; TEMP 97.5; O2SAT 96
[2016-12-02] MEDS ORDERED: GADODIAMIDE PF 287 MG/ML 5 ML VIAL (for RAD MRI) IV ONE (12:26)
--- NOTE | 2016-12-02 13:23 | RADRPT ---
EXAM DATE/TIME: 12/02/2016 11:22 [facility] COMPARISON: KNEE LEFT LTD (1 OR 2VWS), November 20, 2016, 15:47. INDICATIONS : Abscess. CONTRAST: 15 cc Omniscan (gadodiamide) IV MEDICAL HISTORY : Hypertension. Diabetes mellitus type 2. Cardiovascular disease. Skin cancer SURGICAL HISTORY : Coronary artery stent. Left tib/fib fracture with aureliano placment. ENCOUNTER: Initial ACUITY: 2 day PAIN SCORE: 7/10 LOCATION: Bilateral left knee. TECHNIQUE: Multiplanar multisequence MRI examination of the knee was performed with and without contrast. FINDINGS: There is a large joint effusion which appears to gas bubbles within it. There is edema involving the lateral femoral condyle no discrete without any significant cortical destruction, however slight oste omyelitis at this site is difficult to exclude. It demonstrates slight irregular enhancement. There a re meniscal changes within the posterior horn medial meniscus most of which have the appearance of me niscal degeneration, however a small tear may be present extending to the tibial plateau. The anterio r cruciate ligament, posterior cruciate, collateral ligaments, appear grossly intact. Slight meniscal degeneration is present within the lateral meniscus. There is also mild tricompartment osteoarthriti s. There are postsurgical changes in the proximal tibia that is visualized. CONCLUSION: 1. Large joint effusion with gas bubbles within it and possibility of septic joint is not excluded. N ondiscript edema involving the lateral femoral condyle. 2. Questionable small tear posterior horn medial meniscus. Alex Ro MD on December 02, 2016 at 12:56 Board Certified Radiologist. This report was verified electronically.
[2016-12-02 16:00] VITALS: BP 103/62; PULSE 91; RESP 20; TEMP 96.9; O2SAT 95
[2016-12-02 20:00] VITALS: BP 139/64; PULSE 98; RESP 18; TEMP 98.4; O2SAT 94
[2016-12-02] MEDS: ATORVASTATIN 40 MG TAB PO SCH (21:31)
[2016-12-02 23:34] VITALS: PULSE 104
[2016-12-03] MEDS: VANCOMYCIN INJ 800 MG in SODIUM CHLOR 0.9% 250 ML INJ 250 ML IV SCH (01:53)
[2016-12-03] MEDS: INSULIN ASPART SUPPLEMENTAL SCALE SQ SCH ×4 (06:34→22:37)
--- NOTE | 2016-12-03 07:48 | HHI.PR ---
Subjective Remarks slept most of noc again Objective Vital Signs Date Time Temp Pulse Resp B/P Pulse Ox O2 Delivery O2 Flow Rate FiO2 12/02/16 23:34 104 12/02/16 20:00 98.4 98 18 139/64 94 12/02/16 16:00 96.9 91 20 103/62 95 12/02/16 12:20 97.5 92 24 143/67 96 12/02/16 08:00 96.9 99 17 120/83 94 I/O 12/02/16 12/02/16 12/02/16 12/03/16 12/03/16 12/03/16 07:00 15:00 23:00 07:00 15:00 23:00 Intake Total 730 ml 860 ml 250 ml Output Total 500 ml Balance 730 ml 360 ml 250 ml Intake Oral 480 ml 600 ml IV Total 250 ml 260 ml 250 ml Output Urine Total 500 ml # Voids 3 2 2 # Bowel Movements 0 Result Diagram: 12/02/16 0440 12/01/16 0145 Objective Remarks not yr knows [facility] pleasant moves all toes down no clonus dtr tr speech fluent Assessment and Plan Assessment and Plan imp mri brain ok x c1 abn nusu on case and mri c spineshows sign mod est r spinal stenosis c3-4 labs ok spepneg abg ok eeg neg sz he has dementia never called me neurosurgery to fu with him 4 weeks o/p o/w i can fu office dementia start namenda no myelopathy on exam will sign off and fu o/p Champ Kennedy MD Dec 03, 2016 07:48
[2016-12-03 08:00] VITALS: BP 98/59; PULSE 110; RESP 18; TEMP 96; O2SAT 96
[2016-12-03] MEDS ORDERED: MEMANTINE HCL 5 MG TAB PO ONE (08:00)
[2016-12-03] MEDS: DOCUSATE SODIUM 50 MG/SENNA 8.6 MG TAB PO SCH ×2 (08:18→20:31)
[2016-12-03] MEDS: SODIUM CHLORIDE 0.9% FLUSH 10 ML FLUSH IV FLUSH SCH ×4 (09:00→20:30)
[2016-12-03] MEDS: LISINOPRIL 20 MG TAB PO SCH (09:00)
[2016-12-03] MEDS: INSULIN DETEMIR 100 UNITS/ML VIAL SQ SCH ×2 (09:26→20:39)
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
[2016-12-03 12:26] VITALS: BP 94/59; PULSE 102; RESP 18; TEMP 98.5; O2SAT 98
[2016-12-03] MEDS: VANCOMYCIN 1,000 MG/NS 250 ML IV SCH ×2 (14:45)
[2016-12-03 16:00] VITALS: BP 83/58; PULSE 96; RESP 18; TEMP 98.8; O2SAT 96
[2016-12-03 20:00] VITALS: BP 92/56; PULSE 108; RESP 18; TEMP 98.5; O2SAT 95
[2016-12-03] MEDS: ENOXAPARIN SODIUM 30 MG/0.3 ML SYRINGE SQ SCH (20:30)
[2016-12-03] MEDS: ATORVASTATIN 40 MG TAB PO SCH (20:31)
[2016-12-04] MEDS: VANCOMYCIN 1,000 MG/NS 250 ML IV SCH ×4 (01:52→14:41)
[2016-12-04] MEDS: INSULIN ASPART SUPPLEMENTAL SCALE SQ SCH ×3 (06:06→16:56)
[2016-12-04 07:16] VITALS: PULSE 92
[2016-12-04 08:06] VITALS: BP 94/76; PULSE 92; RESP 18; TEMP 99; O2SAT 97
[2016-12-04] MEDS: ENOXAPARIN SODIUM 30 MG/0.3 ML SYRINGE SQ SCH (08:22)
[2016-12-04] MEDS: DOCUSATE SODIUM 50 MG/SENNA 8.6 MG TAB PO SCH (08:24)
[2016-12-04] MEDS: SODIUM CHLORIDE 0.9% FLUSH 10 ML FLUSH IV FLUSH SCH ×3 (08:25→09:44)
[2016-12-04] MEDS: LISINOPRIL 20 MG TAB PO SCH (09:39)
[2016-12-04] MEDS: INSULIN DETEMIR 100 UNITS/ML VIAL SQ SCH (09:43)
[2016-12-04 12:21] VITALS: BP 107/66; PULSE 101; RESP 20; TEMP 97.8; O2SAT 95
[2016-12-04] MEDS: oxyCODONE/ACETAMINOPHEN 5 MG/325 MG TAB PO PRN (12:35)
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
[2016-12-04] MEDS ORDERED: LEVEMIR SQ (16:02)
[2016-12-04] MEDS ORDERED: ENOX30P SQ (16:02)
[2016-12-04] MEDS ORDERED: LISI-515 PO (16:02)
[2016-12-04 16:12] VITALS: BP 143/53; PULSE 93; RESP 18; TEMP 98.3; O2SAT 96
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
[2016-12-05] MEDS ORDERED: PHARMACY ORDERED LAB ONE (01:45)
== END 2016-12-04 17:20 | DRG 854 ==
LOC: NEPC 14:27 → NEDA 17:20 → N05A 19:13 → N05B 11-27 21:07
PROVIDERS: ADMIT Internal Medicine; ATTEND Internal Medicine
PROC: 0S9D3ZX Drainage of Left Knee Joint, Percutaneous Approach, Diagnostic (ICD-10-PCS; 2016-11-23)
PROC: 3E1038Z Irrigation of Skin and Mucous Membranes using Irrigating Substance, Percutaneous Approach (ICD-10-PCS; 2016-11-25)
PROC: 0S9D0ZZ Drainage of Left Knee Joint, Open Approach (ICD-10-PCS; principal; 2016-11-25 19:17)
PROC: 02HV33Z Insertion of Infusion Device into Superior Vena Cava, Percutaneous Approach (ICD-10-PCS; 2016-11-28)
DX: A41.02 Sepsis due to Methicillin resistant Staphylococcus aureus (principal); M00.062 Staphylococcal arthritis, left knee; E11.22 Type 2 diabetes mellitus with diabetic chronic kidney disease; E11.65 Type 2 diabetes mellitus with hyperglycemia; M50.01 Cervical disc disorder with myelopathy, high cervical region; M48.02 Spinal stenosis, cervical region; L03.116 Cellulitis of left lower limb; N18.3 Chronic kidney disease, stage 3 (moderate); I12.9 Hypertensive chronic kidney disease with stage 1 through stage 4 chronic kidney disease, or unspecified chronic kidney disease; I25.10 Atherosclerotic heart disease of native coronary artery without angina pectoris; E86.0 Dehydration; R62.7 Adult failure to thrive; M17.12 Unilateral primary osteoarthritis, left knee; M25.78 Osteophyte, vertebrae; G31.9 Degenerative disease of nervous system, unspecified; F02.80 Dementia in other diseases classified elsewhere, unspecified severity, without behavioral disturbance, psychotic disturbance, mood disturbance, and anxiety; M23.222 Derangement of posterior horn of medial meniscus due to old tear or injury, left knee; Z78.1 Physical restraint status; Z79.4 Long term (current) use of insulin; Z87.891 Personal history of nicotine dependence; Z85.828 Personal history of other malignant neoplasm of skin; Z95.5 Presence of coronary angioplasty implant and graft
CPT/HCPCS: 36569; 36600; 51702; 70450; 70553; 71010; 72125; 72156; 73560; 73723; 76937; 80048; 80053; 80202; 80307; 81001; 82140; 82550; 82565; 82607; 82746; 82805; 82948; 83605; 83921; 84165; 84207; 84425; 84443; 84484; 85025; 85027; 85610; 85730; 86038; 86039; 86403; 86592; 87015; 87040; 87070; 87102; 87116; 87147; 87186; 87205; 87206; 89051; 89060; 93005; 94150; 95819; 96360; 96361; A9579; J0690; J0696; J1580; J1630; J1642; J1644; J1650; J1815; J1885; J2405; J3010; J3370; J7030; J7050; L0172